=== PATIENT | male | born 1975 | race Two or more races ===

== ENCOUNTER 2017-06-28 22:40 | Emergency (ER) | payer MEDICAID ==
[~2017-06-28] VITALS: Ht 170.2 cm; Wt 93.0 kg
[~2017-06-28 22:40] MED LIST: BUSP15TA52; DIVA500T53; ENAL2.5T; GLYB5TAB8; METF-372; MIRT30TA3; SIMV10TA84; ZIPR80CA8
[2017-06-28 22:44] VITALS: BP 145/63
== END 2017-06-28 22:55 | disposition left against medical advice (07) ==
LOC: ER 22:52
DX: R45.851 Suicidal ideations (principal); Z53.21 Procedure and treatment not carried out due to patient leaving prior to being seen by health care provider

== ENCOUNTER 2024-08-18 18:04 | Emergency (ER) | payer MEDICAID ==
[~2024-08-18 18:04] MED LIST changes: +DIVA-91; -DIVA500T53; +ENAL1TAB42; -ENAL2.5T; +MIRT1TAB39; -MIRT30TA3; +SIMV10TA20; -SIMV10TA84; +ZIPR80CA43; -ZIPR80CA8
== END 2024-08-18 18:14 | disposition left against medical advice (07) ==
LOC: ER 18:04
DX: R53.1 Weakness (principal); Z53.21 Procedure and treatment not carried out due to patient leaving prior to being seen by health care provider

== ENCOUNTER 2025-04-09 21:58 | Emergency (ER) | payer MEDICAID ==
[~2025-04-09] VITALS: Ht 170.2 cm; Wt 103.0 kg
--- NOTE | 2025-04-09 22:16 | ED.PDOC ---
Psychiatric HPI Comments 49 year old male presents to the ED via EMS with a chief compliant of suicidal ideation. Per EMS, patient was trying to call crisis center for suicidal ideation, has called previously and has been taken to [facility]. PMHx bipolar disorder, DM, HTN. Denies homicidal ideation, hallucinations, chest pain, shortness of breath, nausea, vomiting, abdominal pain. No other symptoms or modifying factors present at this time. Chief Complaint: Suicidal Time Seen by MD: 22:00 Primary Care Provider: BONIFACIOIES Reviewed Notes: Medications, Allergies Information Source: Patient, Emergency Med Personnel Mode of Arrival: EMS Severity of Mental Status: Moderate Severity of Symptoms: Moderate Timing: Hours Duration: Since onset Prehospital treatment: None Presents with: Suicidal Ideation History of: Bipolar Past Medical History PAST MEDICAL HISTORY: DM, HTN Past Medical History (Other): bipolar disorder Family History Family History: Unknown Social History Drugs: Denies Drug Use Lives In: Home Constitutional: denies: chills, diaphoresis, fatigue, fever, malaise, sweats, weakness, others EENTM: denies: blurred vision, double vision, ear bleeding, ear discharge, ear drainage, ear pain, ear ringing, eye pain, eye redness, hearing loss, mouth pain, mouth swelling, nasal discharge, nose bleeding, nose congestion, nose pain, photophobia, tearing, throat pain, throat swelling, voice changes, others Respiratory: denies: cough, hemoptysis, orthopnea, SOB at rest, shortness of breath, SOB with excertion, stridor, wheezing, others Cardiovascular: denies: chest pain, dizzy spells, diaphoresis, Dyspnea on ex ertion, edema, irregular heart beat, left arm pain, lightheadedness, palpitations, PND, syncope, others Gastrointestinal: denies: abdomen distended, abdominal pain, blood streaked bowels, constipated, diarrhea, dysphagia, difficulty swallowing, hematemesis, melena, nausea, poor appetite, poor fluid intake, rectal bleeding, rectal pain, vomiting, others Genitourinary: denies: burning, dysuria, flank pain, frequency, hematuria, incontinence, penile discharge, penile sore, pain, testicle pain, testicle swelling, urgency, others Neurological: denies: dizziness, fainting, headache, left sided numbness, left sided weakness, numbness, paresthesia, pre-existing deficit, right sided numbness, right sided weakness, seizure, speech problems, tingling, tremors, weakness, others Musculoskeletal: denies: back pain, gout, joint pain, joint swelling, muscle pain, muscle stiffness, neck pain, others Integumetry: denies: bruises, change in color, change in hair/nails, dryness, laceration, lesions, lumps, rash, wounds, others Allergic/Immunocompromised: denies: Difficulty Healing, Frequent Infections, Hives, Itching, others Hematologic/Lymphatic: denies: anemia, blood clots, easy bleeding, easy bruising, swollen glands, others Endocrine: denies: excessive hunger, excessive sweating, excessive thirst, excessive urination, flushing, intolerance to cold, intolerance to heat, unexplained weight gain, unexplained weight loss, others Psychiatric: reports: suicidal; denies: anxiety, bipolar disorder, depression, hopeless, panic disorder, schizophrenia, sleepless, others All Other Systems: Reviewed and Negative Physical Exam General Appearance: Normal HEENT: Normal ENT Inspection, Pharynx Normal, TMs Normal Neck: Full Range of Motion, Non-Tender, Normal, Normal Inspection Respiratory: Chest Non-Tender, Lungs Clear, No Accessory Muscle Use, No Respiratory Distress, Normal Breath Sounds Cardiovascular: No Edema, No JVD, No Murmur, No Gallop, Normal Peripheral Pulses, Regular Rate/Rhythm Breast Exam: Deferred Gastrointestinal: No Organomegaly, Non Tender, No Pulsatile Mass, Normal Bowel Sounds, Soft Genitalia: Deferred Pelvic: Deferred Rectal: Deferred Extremities: No calf tenderness, Normal capillary refill, Normal inspection, Normal range of motion, Non-tender, No pedal edema Musculoskeletal : Apperance: Normal Neurologic: Alert, drawer in plain loom II-XII nml as Tested, No Motor Deficits, Normal Affect, Normal Mood, No Sensory Deficits Cerebellar Function: Normal Reflexes: Normal Skin: Dry, Normal Color, Warm Lymphatic: No Adenopathy Was a procedure done? Was a procedure done?: No Psych Differential Dx Psych. Differential Dx: Anxiety OD Differential Dx: Alcohol Abuse, Anxiety, Bipolar Disorder, Personality Disorder Suicidal Differential Dx: Depression, Homicidal, Substance Abuse X-Ray, Labs, Meds, VS Vital Signs Date Time Temp Pulse Resp B/P (MAP) Pulse Ox O2 Delivery O2 Flow Rate FiO2 04/09/25 22:10 98.3 120 20 157/103 (121) 97 98.3 Lab Test 04/10/25 03:17 04/09/25 22:06 Range/Units POC Glucose 241 H 70-106 mg/dl White Blood Count 6.9 4.4-10.8 10^3/uL Red Blood Count 5.20 4.5-5.90 10^6/uL Hemoglobin 16.5 13.5-17.5 g/dL Hematocrit 48.6 41.0-53.0 % Mean Corpuscular Volume 93.3 80.0-100.0 fL Mean Corpuscular Hemoglobin 31.8 28.0-32.0 pg Mean Corpuscular Hemoglobin Concent 34.0 32.0-36.0 g/dL Red Cell Distribution Width 12.6 11.8-14.3 % Platelet Count 248 140-450 10^3/uL Mean Platelet Volume 8.5 6.9-10.8 fL Neutrophils (%) (Auto) 72.0 37.0-80.0 % Lymphocytes (%) (Auto) 16.1 10.0-50.0 % Monocytes (%) (Auto) 10.5 0.0-12.0 % Eosinophils (%) (Auto) 0.6 0.0-7.0 % Basophils (%) (Auto) 0.8 0.0-2.0 % Neutrophils # (Auto) 5.0 1.6-8.6 10 ^3/uL Lymphocytes # (Auto) 1.1 0.4-5.4 10 ^3/uL Monocytes # (Auto) 0.7 0-1.3 10 ^3/uL Eosinophils # (Auto) 0 0-0.8 10 ^3/uL Basophils # (Auto) 0.1 0-0.2 10 ^3/uL Nucleated Red Blood Cells 0.0 % Sodium Level 138 136-145 mmol/L Potassium Level 3.9 3.5-5.1 mmol/L Chloride Level 101 98-107 mmol/L Carbon Dioxide Level 27 20-31 mmol/L Anion Gap 10 5-15 Blood Urea Nitrogen 14 9-23 mg/dL Creatinine 1.21 0.700-1.30 mg/dL Glomerular Filtration Rate Calc 74 >90 mL/min BUN/Creatinine Ratio 11.6 10.0-20.0 Serum Glucose 365 H 74-106 mg/dL Calcium Level 10.1 8.7-10.4 mg/dL Salicylates Level < 3.0 -30 mg/dL Acetaminophen Level < 2.0 L 10.0-20.0 UG/ML Plasma/Serum Blood Alcohol < 3.0 <10 mg/dL Current Medications Medications (Trade) Dose Ordered Sig/Ey Route Start Time Stop Time Status Last Admin Haloperidol Lactate (Haldol) 10 mg ONCE ONCE IM 04/10/25 02:45 04/10/25 02:46 DC 04/10/25 02:51 Time of 1ST Reevaluation: 22:30 Reevaluation 1ST: Unchanged Patient Education/Counseling: Diagnosis, Treatment, Prognosis Family Education/Counseling: No Family Present Departure 1 Departure Time of Disposition: 05:37 (Patient is medically cleared. Patient is evaluated by psychiatry who recommended the patient for voluntary psychiatric admission) Impression: Primary Impression: Suicide ideation Additional Impression: Polysubstance abuse Disposition: [address] [place] [address] HOSPITAL Condition: Serious Critical Care Note Critical Care Time?: No Stability Stability form required: No I personally scribed for WONG HU MD ([email or web address]) on 04/09/25 at 22:16. Electronically submitted by Elisabet Wilcox ([email or web address]). WONG HU MD Apr 09, 2025 22:16
[2025-04-09 22:27] LABS: Hematocrit 48.6 % (41.0-53.0); Hemoglobin 16.5 g/dL (13.5-17.5); Mean Corpuscular Hemoglobin 31.8 pg (28.0-32.0); Mean Corpuscular Volume 93.3 fL (80.0-100.0); Nucleated Red Blood Cells % 0.0 %
[2025-04-09 22:41] LABS: Chloride 101 mmol/L (98-107); Potassium 3.9 mmol/L (3.5-5.1); Sodium 138 mmol/L (136-145)
[2025-04-09 22:42] LABS: Anion Gap 10 (5-15); Calcium 10.1 mg/dL (8.7-10.4); Carbon Dioxide 27 mmol/L (20-31)
[2025-04-09 22:47] LABS: BUN/Creatinine Ratio 11.6 (10.0-20.0); Blood Urea Nitrogen 14 mg/dL (9-23)
[2025-04-09 22:51] LABS: Glucose 365 mg/dL (74-106)
[2025-04-09 22:52] LABS: Acetaminophen < 2.0 UG/ML (10.0-20.0); Salicylate < 3.0 mg/dL (-30)
--- NOTE | 2025-04-10 02:25 | DVHINCON2 ---
Date of Service if different f: Apr 10, 2025 Time of Service: 01:48 Consult Consult Note PSYCHIATRY ED NEW CONSULT HPI: 49 yo pt with PPH of depression and bipolar disorder presents to ED BIBA for safety, psychiatric stabilization, and possible med initiation/optimization in setting of med noncompliance, depression, and passive SI. Psychiatry consulted for safety evaluation and recommendations in context of current presentation Pt reports being out of his rx'd psychotropic meds over past week (rx'd Buspar, Abilify, Trazodone) and hence has been self medicating with meth/etoh use including last use [employer]. This has resulted in worsening depressed mood, poor sleep, rumination, restlessness, intrusive thoughts, anger outbursts, mood reactivity and irritability. Also intermittent SI that are fleeting but worsening with plan to jump in front of train or cut self although no intent resulting in some interference with daily functioning. Denies HI/AVH/paranoia/catatonic/perceptual disturbances. No overt manic, psychotic, MDD, cognitive, dissociative phenomena, panic, OCD, PTSD, or somatic symptoms noted Does not have active outpt MH services established at this time although has sought outpt MH services in past. Currently rx'd Buspar 15 mg bid, Abilify 10 mg qhs, Trazodone 100 mg qhs prn but ran out of all meds for past week Admits to meth and ETOH use for past several days, pt w/ hx of THC/ETOH/meth dependency, never IVDU, never previously in any drug/etoh tx programs in past Single, two adult children with limited contact, unemployed, lives with sister, some support system noted (immediate family) Unknown trauma hx. Denies FH of psych hospitalizations, suicide attempts, or completed suicides No acute medical/chronic pain issues, hx of seizures/TBI, or recent head injuries, NKDA Some hx of SI/SIB via cutting - last cut several months ago. No actual SA/PSG although hx of prior psych hospitalizations/5150 holds. Some hx of aggression/ assaultive behaviors resulting in prior arrests. Denies recent hx of impulsivity, attention seeking behaviors, anger outbursts, emotional dysregulation, mood reactivity, or engaging in risky behaviors. Denies any legal problems at present. Does not have access to firearms MSE: General Appearance/Behavior: Alert/awake; appears stated age, overweight, marginal/fair grooming/hygiene; tattoos throughout, somewhat calm and cooperative, fair eye contact, mild PMA Speech: coherent, rrr Thought Process: L/L/GD/bit concrete Thought Content: Abnormal Thoughts/Perceptions: denies dissociative symptoms Homicidality / Violent Thoughts: adamantly denies HI Suicidality passive SI Hallucinations: denies AVTH Delusions: denies paranoia, persecutory, or grandiose delusions Obsessions /compulsions: None Judgment/Insight: marginal/fair Mood & Affect: "annoyed" with mood-congruent, somewhat irritable Orientation: oriented x 3 Attention/Concentration: appears intact Cognition: grossly intact Assessment: 49 yo pt with PPH of depression and bipolar disorder presents to ED BIBA for safety, psychiatric stabilization, and possible med initiation/optimization in setting of med noncompliance, substance use, depression, and passive SI Pt currently expressing some SI with moderate interference in daily functioning. Not on any psychotropics for past week + recent use of ETOH/meth may be contributing to current symptoms. No outpt MH services at present. Pt agrees to talk with staff instead of acting on any suicidal feelings while in ED. Pt medically cleared in ED Acute safety risk remains low and is appropriate for inpatient psychiatric admission for further safety, psychiatric stabilization, and possible medication initiation/optimization. Pt willing to transfer to inpt psych facility voluntarily Primary Diagnosis: Bipolar disorder unspecified. ETOH/meth use disorder, unspecified Recommend VOL transfer to inpt psych facility for higher level of care 1:1 sitter is not recommended Recommend continuation of current outpt med regimen - Buspar 15 mg bid, Abilify 10 mg qhs, Trazodone 100 mg qhs prn Defer any psychotropic med changes to accepting inpt psych facility Risks/benefits/alternative treatments discussed, informed consent provided by pt If patient later refuses voluntary hospitalization/ requests to be discharged from ED prior to transfer or if no voluntary beds are available, pt can be safely discharged from ED WITHOUT psych reassessment or 5150 hold evaluation. Rather recommned d/c with several weeks of above meds refill and d/c back to current residence Pt verbalized understanding and is receptive to above tx plan This case was discussed with ED nurse/provider and all parties in agreement with above tx plan Ramon Song MD Plan discussed with: Patient RAMON SONG MD Apr 10, 2025 02:25
[2025-04-10] MEDS: HALOPERIDOL LACTATE 5 MG/ML INJ VIAL IM ONE (02:51)
[2025-04-10 06:47] VITALS: PULSE 70; RESP 16; O2SAT 99
[2025-04-10 11:30] VITALS: PULSE 62; RESP 17; O2SAT 96
[2025-04-10 16:03] LABS: Urine Protein, UAD Negative (Negative)
[2025-04-10 16:18] LABS: Amphetamine Screen, Urine Pos (NEGATIVE); Barbiturate Scree,Urine Neg (NEGATIVE); Benzodiazephine Screen, Urine Neg (NEGATIVE); Cannabinoid Screen, Urine Pos (NEGATIVE); Cocaine Screen, Urine Neg (NEGATIVE); Opiate Scree,Urine Neg (NEGATIVE); Phencyclidine Screen, Urine Neg (NEGATIVE)
[2025-04-10 19:34] VITALS: PULSE 67; RESP 15; O2SAT 97
[2025-04-11 09:30] VITALS: RESP 12; TEMP 98.3; O2SAT 97
[2025-04-11 14:00] VITALS: BP 110/60; PULSE 60; RESP 12; O2SAT 97
== END 2025-04-11 14:27 | disposition home or self-care (01) ==
LOC: EDBD 21:58 → ER 21:58
DX: F19.10 Other psychoactive substance abuse, uncomplicated (principal); R45.851 Suicidal ideations; E11.9 Type 2 diabetes mellitus without complications; I10 Essential (primary) hypertension; F31.9 Bipolar disorder, unspecified
CPT/HCPCS: 36415; 80048; 80307; 80320; 80329; 81001; 82947; 85025; 96372; 99285; J1630; 82962